=== PATIENT | female | born 1950 | race Hispanic/Latino ===

== ENCOUNTER 2024-01-29 09:06 | Day surgery (SDC) | payer OTHER ==
[2024-01-29] VITALS (11 sets, daily range): BP systolic 113–152; BP diastolic 53–72; PULSE 65–73; RESP 15–20
[~2024-01-29] VITALS: Ht 162.6 cm; Wt 68.0 kg
[~2024-01-29 09:06] MED LIST: CARV3.12 PO; MULT-1367 PO; OMEP40CA21 PO; SACU1TAB PO
[2024-01-29] MEDS: 0.9%NACL 1000ML 1,000 ML IV ONE (09:47)
[2024-01-29] MEDS ORDERED: PROPOFOL 10 MG/ML 20ML VIAL IV ONE (11:06)
== END 2024-01-29 12:35 | disposition home or self-care (01) ==
LOC: ENDO 09:06 → DAH 09:06 → ENDO 12:35
PROVIDERS: ATTEND Internal Medicine Gastroenterology
DX: R93.5 Abnormal findings on diagnostic imaging of other abdominal regions, including retroperitoneum (principal); R93.2 Abnormal findings on diagnostic imaging of liver and biliary tract; K76.0 Fatty (change of) liver, not elsewhere classified; K83.8 Other specified diseases of biliary tract; R74.8 Abnormal levels of other serum enzymes; R10.9 Unspecified abdominal pain; E78.5 Hyperlipidemia, unspecified; F32.A Depression, unspecified; Z86.16 Personal history of COVID-19; Z98.890 Other specified postprocedural states; Z85.3 Personal history of malignant neoplasm of breast; Z80.0 Family history of malignant neoplasm of digestive organs; Z86.010 Personal history of colon polyps; Z95.810 Presence of automatic (implantable) cardiac defibrillator
CPT/HCPCS: 43242; J7030 ×2; J2704; A4620; A4215 ×3; A4223; A7002; A4222; A4221; A4663; A4606; J3490